=== PATIENT | male | born 1995 | race African-American/Black ===

== ENCOUNTER 2019-06-19 15:32 | Emergency (ER) | payer MEDICAID ==
[~2019-06-19] VITALS: Ht 172.7 cm; Wt 63.5 kg
[2019-06-19 15:46] VITALS: BP_SYST 124
--- NOTE | 2019-06-19 15:46 | NUR ---
Patient to ER bed 4 to gown for evaluation. Side rails up. Report given to ASHU Gilliland.
--- NOTE | 2019-06-19 15:51 | NUR ---
ER Dr. Nance at bedside examining patient.
--- NOTE | 2019-06-19 15:55 | NUR ---
Patient presented to ER C/O Right hip pain. Patient BIB BLS from home. Patient A&Ox4, afebrile, skin pink & warm, pain 10/23, denies N/V/D. Patient states right hip/groin pain started Monday after moving was[employer] & [employer] . Patient states she has hx of right hip sx 2013
[2019-06-19] MEDS ORDERED: KETOROLAC TROMETHAMINE 60 MG/2 ML VIAL IM ONE (16:00)
[2019-06-19 16:50] VITALS: BP_SYST 127
--- NOTE | 2019-06-19 16:50 | NUR ---
Patient given written and verbal discharge instructions and verbalizes understanding. ER MD discussed with patient the results and treatment provided. Patient in stable condition. ID arm band removed. Rx of Motrin & [place] given. Patient educated on pain management and to follow up with PMD. Pain Scale 7/10 tolerable for patient. Opportunity for questions provided and answered. Medication side effect fact sheet provided.
== END 2019-06-19 16:50 | disposition home or self-care (01) ==
LOC: SED 15:32
DX: R10.31 Right lower quadrant pain (principal)
CPT/HCPCS: 73502; 96372; 99283; J1885

== ENCOUNTER 2019-09-20 10:34 | Emergency (ER) | payer SELFPAY ==
[~2019-09-20] VITALS: Ht 167.6 cm; Wt 69.4 kg
[2019-09-20 10:35] VITALS: BP_SYST 115
[2019-09-20 12:17] VITALS: BP_SYST 115
== END 2019-09-20 12:18 | disposition home or self-care (01) ==
LOC: SED 10:34
DX: R59.1 Generalized enlarged lymph nodes (principal)
CPT/HCPCS: 99281

== ENCOUNTER 2023-06-02 14:29 | Emergency (ER) | payer MEDICAID ==
[~2023-06-02] VITALS: Ht 167.6 cm; Wt 74.8 kg
[2023-06-02 14:32] VITALS: BP_SYST 157; PULSE 79; RESP 18; TEMP 97.2; O2SAT 100
[2023-06-02 15:34] LABS: BASOPHILS % (AUTO) 0.6 % (0.0-2.0); EOSINOPHILS % (AUTO) 1.1 % (0.0-4.0); HEMATOCRIT 43.9 % (36-54); HEMOGLOBIN 14.6 g/dL (14.0-18.0); LYMPHOCYTES # (AUTO) 1.4 K/uL (1.0-5.5); MEAN CORPUSCULAR HEMOGLOBIN 28 pg (27-31); MEAN CORPUSCULAR HGB CONC 33 % (32-36); MEAN CORPUSCULAR VOLUME 84 fL (79.0-98.0); MONOCYTES # (AUTO) 0.4 K/uL (0.0-1.0); MONOCYTES % (AUTO) 9.7 % (1.7-9.3); NEUTROPHILS # (AUTO) 2.1 K/uL (1.8-7.7); NEUTROPHILS % (AUTO) 53.6 % (40.0-70.0); PLATELET COUNT (AUTO) 327 K/uL (130-430); RED CELL DISTRIBUTION WIDTH 13.8 % (9.0-15.0)
[2023-06-02 15:39] LABS: ANION GAP 3 (5-15); CALCIUM 9.2 mg/dL (8.4-11.0); CARBON DIOXIDE 33 mmol/L (23-29); CHLORIDE 102 mmol/L (98-107); CREATININE 0.93 mg/dL (0.55-1.30); GFR AFRICAN AMERICAN 125 mL/min (>90); GLUCOSE 98 mg/dL (74-106); POTASSIUM 4.7 mmol/L (3.5-5.1); SODIUM SERUM 138 mmol/L (136-145); UREA NITROGEN, BLOOD 13 mg/dL (8-21)
[2023-06-02 15:40] LABS: GFR NON AFRICAN-AMERICAN 104 mL/min (>90)
[2023-06-02 15:47] LABS: CREATINE KINASE, TOTAL 128 U/L (39-308)
[2023-06-02 16:17] VITALS: BP_SYST 157; PULSE 79; RESP 18; TEMP 97.2; O2SAT 100
== END 2023-06-02 16:16 | disposition home or self-care (01) ==
LOC: SED 14:29
DX: R07.9 Chest pain, unspecified (principal); F12.90 Cannabis use, unspecified, uncomplicated; Z79.899 Other long term (current) drug therapy
CPT/HCPCS: 36415; 71045; 80048; 82550; 84484; 85025; 85379; 93005; 99285